=== PATIENT | female | born 1990 | race African-American/Black ===

== ENCOUNTER 2017-05-24 16:27 | Emergency (ER) | payer MEDICAID ==
[2017-05-24] MEDS ORDERED: NS 1,000 ML IV ONE (17:01)
--- NOTE | 2017-05-24 17:05 | EDPHY ---
H & P Time Seen by Provider: 05/24/17 16:49 HPI/ROS: HPI , lower abdominal pain. 27-year-old female she is a G4, para 4 with twins who comes the emergency department complaining of waking up this morning with right lower quadrant abdominal pain. She describes the pain as aching and cramping. She reports that it was intense this morning and made her nauseous. She did not vomit. She reports the pain is worse when she is standing and walking around and moving. Denies any vaginal bleeding. No vaginal discharge she has not had a fever. No urinary complaints. No diarrhea. Last bowel movement was this morning. Described as normal. No bloody or melenic stool. ROS: Constitutional: No fever, no chills. No weakness. Eyes: No discharge. No changes in vision. ENT: No sore throat. No nasal congestion or rhinorrhea. Respiratory: No cough. No shortness of breath. Cardiac: No chest pain, no palpitations. Gastrointestinal: As above, no vomiting, no diarrhea. Genitourinary: No hematuria. No dysuria or increased frequency with urination. Musculoskeletal: No back pain. No neck pain. No myalgias or arthralgias. Skin: No rashes. Neurological: No headache. No focal weakness or altered sensation. Past medical history: She denies any significant past medical history. Social history: Nonsmoker. Here by herself. No alcohol. Physical Exam: General Appearance: Alert, no distress. Obese habitus. This patient is responding to questions appropriately and in full sentences. This patient appears well-hydrated and well-nourished. Eyes: Pupils equal and round no pallor or injection. No lid edema, erythema or injection. Respiratory: There are no retractions, lungs are clear to auscultation with good air movement bilaterally. Cardiovascular: Regular rate and rhythm. No murmur. Gastrointestinal: Abdomen is soft with moderate right lower quadrant tenderness on palpation, bowel sounds normal. No You sign. Neurological: Motor sensory function is grossly intact. Cranial nerves are normal. Gait is normal. Skin: Warm and dry, no rashes. Musculoskeletal: Neck is supple and nontender. Extremities are symmetrical. All joints range without pain or impingement. Psychiatric: No agitation. No depression. Database: EKG: Imaging: Abdominal pelvic ultrasound: The appendix is not visualized. The right ovary is normal. Normal blood flow. No cyst. The fetus is normal. Please see official report for further details. The appendix was not visualized. Results were discussed with staff radiologist Dr. Enrrique Watson. MRI of abdomen and pelvis evaluate for appendicitis; Procedures: Emergency department course: IV placed. Vital signs reviewed. Results of ultrasound discussed with the patient. She appears comfortable at this time. She still has right lower quadrant tenderness on palpation. She endorses an MRI of the abdomen and pelvis to evaluate for appendicitis. I was informed by the nursing staff that the patient left the emergency department prior to her MRI. I returned to her room and she was not there and could not be found in the department. The nursing staff informed me that she apparently had a child at home as needed care so she left because of this. I had no further interaction with the patient. Differential Diagnosis: The differential diagnosis on this patient includes but is not limited to appendicitis, ovarian cyst, ovarian torsion, ectopic . This represents a partial list of diagnoses considered. These considerations are based on history, physical exam, past history, reassessment and diagnostic testing. Smoking Status: Never smoked Constitutional: Initial Vital Signs Temperature (C) 37.5 C 05/24/17 16:28 Heart Rate 96 05/24/17 16:28 Respiratory Rate 20 05/24/17 16:28 Blood Pressure 132/94 H 05/24/17 16:28 O2 Sat (%) 97 05/24/17 16:28 O2 Delivery Mode Room Air Allergies/Adverse Reactions: No Known Allergies Allergy (Unverified 05/24/17 16:28) Home Medications: Medication Instructions Recorded 05/24/17 Medical Decision Making - Data Points Laboratory Results: Laboratory Results 05/24/17 17:00 05/24/17 17:00 Microbiology Results: MICROBIOLOGY 05/24/17 16:47 Unspecified Urine Culture - Preliminary Gram Neg [employer] [place] Types Medications Given: Discontinued Medications Sodium Chloride (Ns) 1,000 mls @ 0 mls/hr IV EDNOW ONE; Wide Open PRN Reason: Protocol Stop: 05/24/17 17:02 Last Admin: 05/24/17 17:09 Dose: 1,000 mls Departure - Departure Disposition: Against Medical Advice Clinical Impression: , Abdominal pain
[2017-05-24 17:12] LABS: % IMMATURE GRANULYOCYTES 0.5 % (0.0-1.1); ABSOLUTE IMMATURE GRANULOCYTES 0.07 10^3/uL (0.00-0.10); ADD DIFF? NO; ADD MORPH? NO; ADD SCAN? NO; ATYPICAL LYMPHOCYTE FLAG 10 (0-99); FRAGMENT RBC FLAG 0 (0-99); HEMATOCRIT 40.4 % (38.0-47.0); HEMOGLOBIN 14.1 g/dL (12.6-16.3); LEFT SHIFT FLG 0 (0-99); LIPEMIA HEMOLYSIS FLAG 90 (0-99); MEAN CELL HEMOGLOBIN 30.3 pg (27.9-34.1); MEAN CELL HEMOGLOBIN CONCENTR. 34.9 g/dL (32.4-36.7); MEAN CELL VOLUME 86.7 fL (81.5-99.8); MEAN PLATELET VOLUME 10.5 fL (8.7-11.7); PLATELET CLUMPS FLAG 10 (0-99); PLATELET COUNT 251 10^3/uL (150-400); RED BLOOD CELL COUNT 4.66 10^6/uL (4.18-5.33); RED CELL DISTRIBUTION WIDTH 12.9 % (11.5-15.2)
[2017-05-24 17:31] LABS: ANION GAP 13 mEq/L (8-16); CALCIUM 9.1 mg/dL (8.5-10.4); CARBON DIOXIDE 22 mEq/l (22-31); CHLORIDE 102 mEq/L (97-110); CREATININE 0.7 mg/dL (0.6-1.0); GLOMERULAR FILTRATION RATE > 60; GLUCOSE 101 mg/dL (70-100); POTASSIUM 3.6 mEq/L (3.5-5.2); SODIUM 137 mEq/L (134-144)
[2017-05-24 17:35] LABS: COLOR YELLOW; LEUKOCYTE ESTERASE,URINE NEGATIVE (NEGATIVE); NITRITE,URINE NEGATIVE (NEGATIVE)
[2017-05-24 17:54] LABS: BACTERIA TRACE /hpf (NONE SEEN); MUCUS TRACE /lpf (NONE-1+)
[2017-05-24 20:33] VITALS: BP 125/85; PULSE 90; RESP 16; TEMP 98.4; O2SAT 98
== END 2017-05-24 20:32 | disposition left against medical advice (07) ==
DX: O26.892 Other specified pregnancy related conditions, second trimester (principal); R10.31 Right lower quadrant pain; O99.282 Endocrine, nutritional and metabolic diseases complicating pregnancy, second trimester; E86.9 Volume depletion, unspecified; Z3A.19 19 weeks gestation of pregnancy

== ENCOUNTER → 2017-07-03 | Outpatient (CLI) | payer MEDICAID | LOC: FIMAGING 10:02 | PROVIDERS: ATTEND Obstetrics & Gynecology | DX: O36.5920 Maternal care for other known or suspected poor fetal growth, second trimester, not applicable or unspecified (principal); I31.3 Pericardial effusion (noninflammatory); Z98.891 History of uterine scar from previous surgery; Z3A.26 26 weeks gestation of pregnancy ==

== ENCOUNTER → 2017-07-27 | Outpatient (CLI) | payer MEDICAID | LOC: FIMAGING 10:35 | PROVIDERS: ATTEND Obstetrics & Gynecology | DX: O99.213 Obesity complicating pregnancy, third trimester (principal); Z3A.29 29 weeks gestation of pregnancy ==

== ENCOUNTER → 2017-08-31 | Outpatient (CLI) | payer MEDICAID | LOC: FIMAGING 14:05 | PROVIDERS: ATTEND Obstetrics & Gynecology | DX: O26.03 Excessive weight gain in pregnancy, third trimester (principal); O09.293 Supervision of pregnancy with other poor reproductive or obstetric history, third trimester; Z3A.32 32 weeks gestation of pregnancy ==